=== PATIENT | female | born 1935 | race Caucasian/White ===

== ENCOUNTER 2017-01-21 08:42 | Emergency (ER) | payer MEDICARE, MEDICAID ==
[2017-01-21 08:53] VITALS: BP 153/62
--- NOTE | 2017-01-21 08:55 | UC ---
Ear Complaint HPI - HPI Summary HPI Summary: 81 year old female presents with right ear pain. - History of Current Complaint Stated Complaint: RIGHT EAR PAIN Time Seen by Provider: 01/21/17 08:48 - Allergies/Home Medications Allergies/Adverse Reactions: Allergies Allergy/AdvReac Type Severity Reaction Status Date / Time Adhesive Tape Allergy Blisters Verified 01/21/17 08:48 Home Medications: Home Medications Furosemide TAB* [Lasix TAB*] 40 mg PO TID 01/21/17 [History Confirmed 01/21/17] Levothyroxine TAB* [Synthroid TAB*] 88 mcg PO DAILY 01/21/17 [History Confirmed 01/21/17] Midodrine HCl 2.5 mg PO 01/21/17 [History] Midodrine HCl 2.5 mg PO BID 01/21/17 [History Confirmed 01/21/17] Potassium Chloride [Potassium Chloride ER] 10 meq PO BID 01/21/17 [History Confirmed 01/21/17] Pramipexole TAB* [Mirapex TAB*] 0.5 mg PO BEDTIME 01/21/17 [History Confirmed ] Ranolazine (NF) [Ranexa (NF)] 500 mg PO BID 01/21/17 [History Confirmed 01/21/17 ] Risperidone 0.25 mg PO BEDTIME 01/21/17 [History Confirmed 01/21/17] Simvastatin TAB(NF) [Zocor(NF)] 10 mg PO DAILY 01/21/17 [History Confirmed 01/21] Warfarin TAB(*) [Coumadin TAB(*)] 2.5 mg PO 1700 01/21/17 [History Confirmed ] Review of Systems Constitutional: Negative Skin: Negative Eyes: Negative ENT: Ear Ache Respiratory: Negative Cardiovascular: Negative Gastrointestinal: Negative Genitourinary: Negative Motor: Negative Neurovascular: Negative Musculoskeletal: Negative Neurological: Negative Psychological: Negative All Other Systems Reviewed And Are Negative: Yes Physical Exam Triage Information Reviewed: Yes Eye Exam: Normal ENT: Positive: Other: - right external canal erythema right ear purulent discharge Dental Exam: Normal Neck exam: Normal Neck: Positive: 1 Respiratory Exam: Normal Cardiovascular Exam: Normal Abdominal Exam: Normal Musculoskeletal Exam: Normal Neurological Exam: Normal Psychological Exam: Normal Skin Exam: Normal Ear Complaint Course/Dx - Differential Dx/Diagnosis Provider Diagnoses: otitis externa. serous AOM Discharge - Discharge Plan Condition: Stable Disposition: HOME Prescriptions: Amoxicillin PO (*) [Amoxicillin 500 MG CAP*] 500 mg PO TID #30 cap Ciproflox/Dexameth OTIC.SUSP* [Ciprodex OTIC.SUSP*] 1 drop .SEE ORDER BID #1 [id number] Patient Education Materials: Otitis Externa (ED), Earache (ED), Serous Otitis Media (ED) Referrals: User,Conversion [Z.CONVERSION PROVIDER TYPE] -
== END 2017-01-21 09:11 | disposition home or self-care (01) ==
LOC: UCCORT 08:42
DX: H60.91 Unspecified otitis externa, right ear (principal); H65.01 Acute serous otitis media, right ear
CPT/HCPCS: 99203; G0463